=== PATIENT | female | born 1990 | race Caucasian/White ===

== ENCOUNTER 2018-07-26 19:41 | Inpatient (IN) | payer OTHER ==
[2018-07-26] MEDS ORDERED: OXYTOCIN 30 UNITS/LR 500 ML IV (20:30)
[2018-07-26] MEDS ORDERED: BUTORPHANOL 2 MG INJ IV (20:30)
[2018-07-26] MEDS ORDERED: CARBOPROST 250 MCG INJ IM (20:30)
[2018-07-26] MEDS ORDERED: MISOPROSTOL 200 MCG TAB PR (20:30)
[2018-07-26] MEDS ORDERED: METHYLERGONOVINE 0.2 MG INJ IM (20:30)
[2018-07-26] MEDS ORDERED: LIDOCAINE 1% (MPF) 30 ML INJ INJ (20:30)
[2018-07-26] MEDS: LACTATED RINGER'S 1,000 ML IV (20:35)
[2018-07-26 20:51] LABS: ADD MAN DIFF? NO
[2018-07-26 20:56] LABS: WHITE BLOOD COUNT 8.5 10^3/ul (4.8-10.8)
[2018-07-26 20:56] LABS: BASOPHILS % 0.2 % (0.0-2.0); EOSINOPHILS # 0.1 10^3/ul (0.0-0.5); EOSINOPHILS % 1.1 % (0.0-7.0); HEMATOCRIT 34.2 % (37.0-47.0); HEMOGLOBIN 10.7 g/dl (12.0-16.0); LYMPHOCYTES # 1.4 10^3/ul (0.8-2.9); LYMPHOCYTES % 16.2 % (15.0-51.0); MEAN CORPUSCULAR HEMOGLOBIN 25.4 pg (29.0-33.0); MEAN CORPUSCULAR HGB CONC 31.3 g/dl (32.0-37.0); MEAN PLATELET VOLUME 11.4 fl (7.4-10.4); MONOCYTE # 0.5 10^3/ul (0.3-0.9); MONOCYTES % 5.9 % (0.0-11.0); NEUTROPHIL # 6.4 10^3/ul (1.6-7.5); NEUTROPHILS % 75.8 % (39.0-77.0); PLATELET COUNT 224 10^3/UL (140-415); RED BLOOD COUNT 4.22 10^6/ul (4.20-5.40); RED CELL DISTRIBUTION WIDTH 14.7 % (11.5-14.5)
[2018-07-26 21:16] LABS: INR 0.88; PT RATIO 0.9
[2018-07-26 21:17] LABS: PARTIAL THROMBOPLASTIN TIME 26.9 Sec (23.0-35.0)
[2018-07-26] MEDS: OXYTOCIN 30 UNITS/LR 500 ML IV (21:35)
[2018-07-26 21:50] LABS: HEPATITIS B SURFACE ANTIGEN NEGATIVE (NEGATIVE)
[2018-07-27] MEDS: LACTATED RINGER'S 1,000 ML IV ×2 (01:43→01:48)
[2018-07-27] MEDS ORDERED: FENTAnyl 2MCG/ML-ROPIV 0.2% 100 ML (02:53)
[2018-07-27] MEDS ORDERED: DIPHENHYDRAMINE 50 MG INJ IV (03:30)
[2018-07-27] MEDS ORDERED: TRIMETHOBENZAMIDE 100 MG/ML VIAL IM (03:30)
[2018-07-27] MEDS ORDERED: NALOXONE (0.4 MG/ML) INJ IV (03:30)
[2018-07-27] MEDS ORDERED: ONDANSETRON 4 MG INJ IV ×2 (03:30→07:00)
[2018-07-27] MEDS: OXYTOCIN 30 UNITS/LR 500 ML IV ×3 (06:35→06:50)
[2018-07-27] MEDS ORDERED: SENNA/DOCUSATE NA (8.6MG/50MG) TAB PO (07:00)
[2018-07-27] MEDS ORDERED: OXYTOCIN 30 UNITS/LR 500 ML IV (07:00)
[2018-07-27] MEDS ORDERED: LANOLIN HPA 1 PKT TOP (07:00)
[2018-07-27] MEDS ORDERED: METHYLERGONOVINE 0.2 MG INJ IM (07:00)
[2018-07-27] MEDS ORDERED: BENZOCAINE 20% 56 ML SPRAY TOP (07:00)
[2018-07-27] MEDS ORDERED: WITCH HAZEL/GLYCERIN PAD PR (07:00)
[2018-07-27] MEDS ORDERED: ACETAMINOPHEN 325 MG TAB PO ×2 (07:00)
[2018-07-27] MEDS ORDERED: CARBOPROST 250 MCG INJ IM (07:00)
[2018-07-27] MEDS ORDERED: DIBUCAINE 1% 30 GM OINT TOP (07:00)
[2018-07-27] MEDS ORDERED: MISOPROSTOL 200 MCG TAB PR (07:00)
[2018-07-27] MEDS ORDERED: MAGNESIUM HYDROXIDE 30ML CUP PO (07:00)
[2018-07-27] MEDS: LACTATED RINGER'S 1,000 ML IV* ×3 (08:20→20:40)
[2018-07-27] MEDS: IBUPROFEN 600 MG TAB PO ×2 (12:30→19:13)
[2018-07-27 15:14] LABS: RAPID PLASMA REAGIN NONREACTIVE (NR)
[2018-07-28] MEDS: IBUPROFEN 600 MG TAB PO ×2 (00:49→11:36)
[2018-07-28] MEDS: LACTATED RINGER'S 1,000 ML IV* (06:50)
[2018-07-28 08:16] LABS: ADD MAN DIFF? NO
[2018-07-28 08:29] LABS: WHITE BLOOD COUNT 7.4 10^3/ul (4.8-10.8)
[2018-07-28 08:29] LABS: BASOPHILS % 0.4 % (0.0-2.0); EOSINOPHILS # 0.2 10^3/ul (0.0-0.5); EOSINOPHILS % 2.2 % (0.0-7.0); HEMATOCRIT 33.6 % (37.0-47.0); HEMOGLOBIN 10.3 g/dl (12.0-16.0); LYMPHOCYTES # 1.8 10^3/ul (0.8-2.9); MEAN CORPUSCULAR HEMOGLOBIN 24.8 pg (29.0-33.0); MEAN CORPUSCULAR HGB CONC 30.7 g/dl (32.0-37.0); MEAN CORPUSCULAR VOLUME 80.8 fl (82.0-101.0); MEAN PLATELET VOLUME 11.9 fl (7.4-10.4); MONOCYTE # 0.4 10^3/ul (0.3-0.9); MONOCYTES % 4.7 % (0.0-11.0); NEUTROPHILS % 68.2 % (39.0-77.0); PLATELET COUNT 208 10^3/UL (140-415); RED BLOOD COUNT 4.16 10^6/ul (4.20-5.40); RED CELL DISTRIBUTION WIDTH 15.1 % (11.5-14.5)
== END 2018-07-28 15:00 | disposition home or self-care (01) | DRG 807 ==
LOC: OBT 19:41 → PP1 07-27 08:25 → L-D 19:43 → OBT 19:55 → L-D 19:55
PROVIDERS: Obstetrics & Gynecology
PROC: 10E0XZZ Delivery of Products of Conception, External Approach (ICD-10-PCS; principal; 2018-07-27)
DX: O69.81X0 Labor and delivery complicated by cord around neck, without compression, not applicable or unspecified (principal); Z37.0 Single live birth; O90.81 Anemia of the puerperium; D64.9 Anemia, unspecified; Z3A.39 39 weeks gestation of pregnancy
CPT/HCPCS: 62322; 85025; 85610; 85730; 86592; 86850; 86900; 86901; 87340